=== PATIENT | female | born 1945 | race Hispanic/Latino ===

== ENCOUNTER 2020-09-01 10:00 | Emergency (ER) | payer MEDICARE ==
[~2020-09-01] VITALS: Ht 157.5 cm; Wt 65.3 kg
--- NOTE | 2020-09-01 11:00 | Diagnostic Imaging Report ---
EXAMINATION: 1. Left ankle, 3 views 2. Left foot, 3 views INDICATION: ^fall, pain, swelling Comparison: None available. Discussion: Multiple views of the left ankle are negative for an acute displaced fracture or dislocation. Talar dome and ankle mortise are intact. Multiple views of the left foot are negative for an acute displaced fracture or dislocation. There is a questionable nondisplaced fracture of the base of the distal phalanx of the first toe at the medial aspect versus artifactual skin folds. Diffuse soft tissue swelling is noted about the ankle and foot. Plantar calcaneal spur is noted. Dorsal tarsal spurring is noted. Endoscopic the insertion of the Achilles tendon is noted. Negative for radiopaque foreign body within the overlying soft tissues. IMPRESSION: 1. Negative for acute displaced fracture or dislocation of the left foot or ankle. Questionable nondisplaced fracture of the medial base of the distal phalanx of the first toe. Findings could relate to skin fold or artifact. Correlate with point tenderness. 2. Degenerative changes as described above. 3. Diffuse soft tissue swelling, nonspecific. Signed by: Manuel Abel MD on 09/01/2020 10:56 AM
--- NOTE | 2020-09-01 11:42 | Emergency Department Note ---
History of Present Illnes History of Present Illness Chief Complaint: Extremity Trauma/Pain History of Present Illness This is a 75 year old female arrives to the ED after an eversion injury of her left foot on Saturday. Patient admits to mild pain on ambulation but denies any other complaints of trauma. . Chief Complaint Comment Patient in from home with complaints of left foot pain and swelling that began after mechanical trip and fall at home on Saturday. Patient did not tell her family about the fall and they saw her today and looked at her foot and brought her to the ER. Patient's left foot is bruised and swollen with scattered blisters and a weak pedal pulse. Bruising extends from midcalf to her toes. Patient states she is is not in a lot of pain. Historian: Patient Arrival Mode: Car Onset (how long ago): hour(s) Severity: mild Onset quality: gradual Duration (how long): hour(s) Timing of current episode: intermittent Progression: waxing and waning Past Medical/Family History Physician Review I have reviewed the patient's past medical and family history. Any updates have been documented here. Past Medical History Recent Fever: No Clinical Suspicion of Infectio: No New/Unexplained Change in Ment: No Past Medical History: Hypertension, Hypothyroidism, Depression Past Surgical History: Cholecysctectomy Social History Smoking Cessation: Never Smoker Counseling Performed: No Alcohol Use: None Any Illegal Drug Use: No Other Any Pre-Existing Lines (PICC,: No Review of Systems Review of Systems Constitutional: Reports no symptoms EENTM: Reports no symptoms Cardiovascular: Reports no symptoms Respiratory: Reports no symptoms Gastrointestinal: Reports no symptoms Genitourinary: Reports no symptoms Musculoskeletal: Reports as per HPI, Reports joint pain, Reports joint swelling Integumentary: Reports no symptoms Neurological: Reports no symptoms Psychological: Reports no symptoms Endocrine: Reports no symptoms Hematological/Lymphatic: Reports no symptoms Physical Exam Related Data Allergies: Coded Allergies: No Known Allergies (Unverified , 09/01/20) Triage Vital Signs Vital Signs Date Time Temp Pulse Resp B/P (MAP) Pulse Ox O2 Delivery O2 Flow Rate FiO2 09/01/20 10:04 98.5 90 17 148/76 100 Room Air Vital signs reviewed: Yes Physical Exam CONSTITUTIONAL Constitutional: Present well-developed, Present well-nourished HENT HENT: Present normocephalic, Present atraumatic, Present oropharynx clear/moist, Present nose normal HENT L/R: Present left ext ear normal, Present right ext ear normal EYES Eyes: Reports PERRL, Reports conjunctivae normal NECK Neck: Present ROM normal PULMONARY Pulmonary: Present effort normal, Present breath sounds normal CARDIOVASCULAR Cardiovascular: Present regular rhythm, Present heart sounds normal, Present capillary refill normal, Present normal rate GASTROINTESTINAL Abdominal: Present soft, Present nontender, Present bowel sounds normal GENITOURINARY Genitourinary: Present exam deferred SKIN Skin: Present warm, Present dry MUSCULOSKELETAL Musculoskeletal: Present tenderness, Present swelling, Present other (ecchymoses noted over dorsal aspect of left foot, patient was neurovascularly intact) NEUROLOGICAL Neurological: Present alert, Present oriented x 3, Present no gross motor or sensory deficits PSYCHOLOGICAL Psychological: Present mood/affect normal, Present judgement normal Results Imaging Imaging results reviewed: Yes Impressions IMPRESSION: 1. Negative for acute displaced fracture or dislocation of the left foot or ankle. Questionable nondisplaced fracture of the medial base of the distal phalanx of the first toe. Findings could relate to skin fold or artifact. Correlate with point tenderness. 2. Degenerative changes as described above. 3. Diffuse soft tissue swelling, nonspecific. Signed by: Manuel Abel MD on 09/01/2020 10:56 AM IMPRESSION: 1. Negative for acute displaced fracture or dislocation of the left foot or ankle. Questionable nondisplaced fracture of the medial base of the distal phalanx of the first toe. Findings could relate to skin fold or artifact. Correlate with point tenderness. 2. Degenerative changes as described above. 3. Diffuse soft tissue swelling, nonspecific. Signed by: Manuel Aebl MD on 09/01/2020 10:56 AM Procedures Orthopedic Splinting/Casting Injury: Injury #1 Side: left Lower extremity injury locatio: ankle Lower extremity immobilizer: air cast Assessment & Plan Medical Decision Making MDM 74-year-old female arrived to the ED with left ankle sprain possible fracture, ecchymoses noted over the dorsal aspect of foot with small water blister. Patient is not a diabetic otherwise neurovascularly intact with soft compartme nts. Assessment & Plan Final Impression: (1) Metatarsal bone fracture Depart Disposition: HOME, SELF-CARE Last Vital Signs Date Time Temp Pulse Resp B/P (MAP) Pulse Ox O2 Delivery O2 Flow Rate FiO2 10/22/20 10:04 98.5 90 17 148/76 100 Room Air NIRAV WILD DO Sep 01, 2020 11:38
== END 2020-09-01 11:59 | disposition home or self-care (01) ==
LOC: ER 11:09
DX: S92.315A Nondisplaced fracture of first metatarsal bone, left foot, initial encounter for closed fracture (principal); W01.0XXA Fall on same level from slipping, tripping and stumbling without subsequent striking against object, initial encounter; Y93.01 Activity, walking, marching and hiking; Y92.008 Other place in unspecified non-institutional (private) residence as the place of occurrence of the external cause; I10 Essential (primary) hypertension; F32.9 Major depressive disorder, single episode, unspecified; E03.9 Hypothyroidism, unspecified
CPT/HCPCS: 99284